=== PATIENT | female | born 1945 | race Caucasian/White ===

== ENCOUNTER 2025-07-04 19:25 | Inpatient (IN) | payer MEDICARE, OTHER, SELFPAY ==
[2025-07-04] VITALS (16 sets, daily range): BP systolic 98–195; BP diastolic 53–96; BMI 19.6
--- NOTE | 2025-07-04 11:40 | ED.GENMED ---
History of Present Illness
General
Chief Complaint: Abdominal Symptoms
Source: patient and family (Daughter)
Exam Limitations: none
Time Seen by Provider: 07/04/25 11:32
History of Present Illness
History of Present Illness:
80-year-old female complaining of left flank pain. Started yesterday. Associate with nausea and vomiting. No fever or chills. No urinary symptoms. No burning with urination. No change in bowels. History of appendiceal CA with metastasis. Has
had previous ureteral stents with surgery. Pain feels similar.
Past History
Past History
ED Past Medical History: Cancer and Other (Renal insufficiency)
ED Past Surgical History: Appendectomy, Cholecystectomy and Gynecological
Phy Exam
Physical Exam
Physical Exam:
GENERAL: Alert and oriented in no apparent distress
EYE: Orbits normal.
NECK: Supple
CARDIAC: Regular rate and rhythm without any obvious murmurs.
LUNGS: Clear breath sounds,normal
ABDOMEN: Soft, without focal tenderness or distention. No rash or flank rash. No vesicles. No CVA tenderness
NEUROLOGICAL: Alert and oriented , grossly non-focal
SKIN: Warm and dry, no rash or lesion, no discoloration, skin intact.
MUSCULOSKELETAL: Mild bilateral pitting edema
PSYCH: Normal and appropriate interaction.
Course
Orders/Labs/Results
Orders:
Orders
07/04/25 11:52
Complete Blood Count/With Diff Urgent
Comprehensive Metabolic Panel Urgent
Lipase Urgent
07/04/25 13:12
CT Abd/pel Without Iv Or Oral Urgent
Comment:
Reason For Exam: left flak pain
IV Insert/Care/Rem.- Treatment PRN
Urinalysis Reflex To Culture Urgent
0.9% Sodium Chloride 500 ml [Nss] 500 ml IV BOLUS
07/04/25 13:53
HYDROmorphone [Dilaudid] 0.25 mg IV NOW STA
07/04/25 14:20
Blood Culture Q30M
ISMAEL Source: Blood/Venous
Specimen Description:
Blood Culture Q30M
ISMAEL Source: Blood/Venous
Specimen Description:
07/04/25 19:02
Urine Creatinine Routine
Urine Sodium Routine
07/04/25 19:05
Admit/Transfer Patient As Directed
Co-Sign Provider:
Level of Care: Inpatient admission
Assign to:: Medical/Surgical
Physician / Group: Olga Mckeon
Diagnosis: bilateral hydroureternephrosis, renal failuren
Reason for Hospitalization: bilateral hydroureternephrosis, renal failuren
Expected length of stay greater than two midnights?: Yes
ELOS- Estimated Length of Stay in days: 3
I certify the patient meets the requirements for IP care: Yes
Code Status As Directed
Resuscitation Status: Do not resuscitate
Reached after discussion with pt or family/Healthcare POA: Yes
PRN Pain Medication Management As Directed
May give lesser potent ordered pain med per pt: Yes
preference::
Protocol:: Medication orders for pain may be administered in a
manner that supports deferring to patient preference
when the pt is:
- Requesting an ordered lesser potent pain medication.
Least to most potent pain medications are defined
as: acetaminophen < NSAID < tramadol < opioids
(morphine, oxycodone, hydromorphone).
- Requesting a lesser dose of the same medication IF
ORDERED.
- Requesting a less intrusive route of administration
if both routes are prescribed by the provider (PO <
IV).
07/04/25 19:07
DNR Bracelet Application ONCE
07/04/25 19:15
0.9% Sodium Chloride 1000 ml [Nss] 1,000 ml IV 60 mls/hr
07/04/25 19:30
Dextrose 5%/Water 1000 ml [D5w] 1,000 ml Sodium Bicarbonate 150 meq IV 60 mls/hr
07/04/25 20:22
HYDROmorphone [Dilaudid] 0.25 mg IV Q3HPRN PRN
07/04/25 20:46
Acetaminophen [Tylenol] 650 mg PO Q6HPRN PRN mild pain
Bisacodyl [Dulcolax] 10 mg RECTAL [id number] PRN
Ondansetron Injectable [Zofran] 4 mg IV Q6HPRN PRN
Polyethylene Glycol Powder [Miralax] 17 grams PO DAILYPRN PRN
07/04/25 20:46
Case Management Consult ONCE
Case Management Consult: Hospice
Hospice: Evaluation and treat
Consult Interventional Radiology [IRAD CONSULT] Routine
Consulting Provider: Ronaldo Mock
Was physician already notified: Yes
Procedure being ordered, including laterality if applicable: b/l nephrostomy tube eval
Acknowledgement that appropriate orders are entered: Yes
UROLOGY CONSULT Routine
Consulting Provider: Morro Mireles
Was physician already notified: Yes
Activity As Directed
Activity Level: As Tolerated
Pneumatic Compression Sleeves As Directed
Type: Knee high
Vital Signs As Directed
Frequency: Per unit guidelines
DX Deep Vein Thrombosis Video Routine
07/05/25 Breakfast
NPO
Allow oral meds: Yes
Allow clear liquids: No
Basic Metabolic Panel IN AM
Complete Blood Count/With Diff IN AM
Magnesium IN AM
07/05/25 08:00
Pantoprazole [Protonix] 40 mg PO DAILY
Abnormal Lab Results
07/04/25
11:52
WBC 15.0 H 10^3/uL
(4.8-10.8)
RBC 3.59 L 10^6/uL
(4.20-5.40)
Hgb 10.4 L g/dL
(12.0-16.0)
Hct 31.2 L %
(37.0-47.0)
RDW 20.6 H %
(11.5-14.5)
Abs Immat Gran (auto) 0.1 H 10^3/uL
(0-0.05)
Absolute Neuts (auto) 13.1 H 10^3/uL
(1.4-6.5)
Absolute Lymphs (auto) 0.6 L 10^3/uL
(1.2-3.4)
Absolute Monos (auto) 1.2 H 10^3/uL
(0.1-0.6)
Immature Gran % 0.7 H %
(0-0.5)
Neutrophils % 87.7 H %
(42.2-75.2)
Lymphocytes % 3.7 L %
(20.5-51.1)
Carbon Dioxide 19 L mmol/L
(22-30)
BUN 59 H mg/dl
(7-17)
Creatinine 4.5 H* mg/dL
(0.6-1.0)
Calcium 8.2 L mg/dl
(8.4-10.2)
AST 211 H U/L
(14-36)
ALT 101 H U/L
(0-35)
Alkaline Phosphatase 1171 H U/L
(38-126)
Total Protein 5.9 L g/dl
(6.3-8.2)
Albumin 2.9 L g/dl
(3.5-5.0)
07/04/25 11:52
07/04/25 11:52
Vital Signs
Initial and Last Documented VS:
Initial Vital Signs
Temp Pulse Resp BP Pulse Ox
97.7 F 93 16 172/96 98
07/04/25 09:26 07/04/25 09:26 07/04/25 09:26 07/04/25 09:26 07/04/25 09:26
Last Documented Vital Signs
Temp Pulse Resp BP Pulse Ox
98.2 F 91 16 138/79 94
07/05/25 01:52 07/05/25 01:52 07/05/25 01:52 07/05/25 01:52 07/05/25 01:52
MDM/Problems Addressed
Differential Diagnosis Includes:
Patient most consistent with some kind of ureteral or kidney issue. Clinically not infectious. Workup in progress. Fluids labs CT scan.
*Radiology
Radiology exam reviewed: radiology read reviewed (Large pelvic mass cystic and solid. Bilateral obstructing ureters with hydronephrosis bilaterally.)
*Pulse Oximetry
SaO2: 98
Oxygen Mode of Delivery: Room air
Patient hypoxic: no
*Critical Care Note
Total Time (30-74mins, 75-104mins- exclusive of procedures): Not Applicable
Update Note
Update Note:
Patient clearly warrants admission for renal failure bilateral obstructing ureter secondary to mass in the pelvis. Will likely need nephrostomies. 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 Patient would prefer to stay at [place].
ED Attending Note
-
Portions of this chart may have been created with voice recognition software.� Occasional wrong word or��sound alike� substitutions may have occurred due to the inherent limitations of voice recognition software.
Discharge Plan
Departure
Patient Disposition: Admit
Date of Disposition: 07/04/25
Time of Disposition: 15:26
Presentation/result/management discussed w/ accepting MD/DO: Hospitalist
Discharge Problem:
Acute renal failure, Bilateral obstructing ureters, Secondary to pelvic mass
Interventions
Interventions:
*Risk Screen - Suicide Last Done: 07/04/25 20:21
*General Assessment Last Done: 07/04/25 20:21
*Neglect/Abuse Screening Last Done: 07/04/25 20:21
*ED COVID-19 Vaccine History Last Done: 07/04/25 20:21
*ED Influenza Vaccine History Last Done: 07/04/25 20:21
[facility] Fall Risk Assessment Tool Last Done: 07/04/25 21:25
YL-Sfipqs-Lvmkvtlnub Assessment Last Done: 07/04/25 11:56
[2025-07-04 12:08] LABS: Hematocrit 31.2 % (37.0-47.0); Hemoglobin 10.4 g/dL (12.0-16.0); Mean Corp Hgb Conc. 33.3 g/dL (33.0-37.0); Mean Corpuscular Volume 86.9 fL (81.0-99.0); Nucleated Red Blood Cells % 0 %; Platelet Count 379 10^3/uL (130-400); Red Cell Dist. Width 20.6 % (11.5-14.5)
[2025-07-04 12:30] LABS: ALT (SGPT) 101 U/L (0-35); AST (SGOT) 211 U/L (14-36); Albumin 2.9 g/dl (3.5-5.0); Blood Urea Nitrogen 59 mg/dl (7-17); Calcium 8.2 mg/dl (8.4-10.2); Carbon Dioxide 19 mmol/L (22-30); Chloride 105 mmol/L (98-107); Estimated Creatinine Clearance 9 ml/min; Glucose 97 mg/dl (70-99); Lipase 294 U/L (23-300); Potassium 4.0 mmol/L (3.5-5.1); Sodium 136 mmol/L (135-145); Total Protein 5.9 g/dl (6.3-8.2); eGFR 9.49
[2025-07-04] MEDS: NSS 500 IV (13:15)
[2025-07-04] MEDS: DILAUDID 0.25 MG IV ×2 (14:33→20:38)
[2025-07-04 14:47] LABS: Alkaline Phosphatase 1171 U/L (38-126)
--- NOTE | 2025-07-04 18:43 | HPS.HSE ---
Addendum entered and electronically signed by Olga Mckeon MD 07/04/25 19:18:
Labs with metabolic acidosis in setting of kidney failure, sodium bicarb ordered.
Original Note:
Family Physician
-
Family Physician: Bob Medrano
Chief Complaint
-
left flank pain
History of Present Illness
Ms. Perla Escudero is a 80 yo woman with hx metastatic appendiceal cancer, CKD who presents to the ER with flank pain.
Pain has been on-going the past several days. No fevers. + nausea/vomiting a couple of times. She received a low dose of Dilaudid in the ER and pain is now resolved.
No chest pain or shortness of breath. She has had very poor appetite over the past several days.
Patient was on recent chemotherapy for appendiceal cancer but this was stopped for low blood counts. She recently met with palliative care and is discussing enrollment in hospice. Her [place] Oncologist updated ER physician that they were discussing
hospice.
Medical History
Past Medical History
Past Medical History: Reports Other (metastatic appendiceal cancer, CKD)
Past Surgical History: Reports Other
Social History
Tobacco: Non-smoker
Alcohol: None
Family History
Family History: Not pertinent
Allergies / Home Medications
Allergies reflects when Allergies were last updated in [facility].
Home Medications with original date entered in [facility]
Allergy/Medication List:
Allergies
Allergy/AdvReac Type Severity Reaction Status Date / Time
No Known Allergies Allergy Unverified 07/04/25 09:29
Home Medications
acetaminophen 325 mg tablet (Tylenol) 650 mg PO Q6HPRN PRN mild pain 07/04/25
omeprazole 40 mg capsule,delayed release 40 mg PO DAILY Gastrointestinal Issue 07/04/25
therapeutic multivitamin 1 tab PO DAILY Supplement 07/04/25
Review of Systems
-
History Source: Patient
A 12 point ROS was completed and negative except as noted: Yes
Physical Exam
Vital Signs
Vital Signs
Temp Pulse Resp BP Pulse Ox
97.7 F 113 13 165/74 93
07/04/25 09:26 07/04/25 18:30 07/04/25 18:30 07/04/25 18:30 07/04/25 18:30
Physical Exam
General: No Apparent Distress
HEENT: PERRLA
Respiratory: Clear; No Wheezes
Cardiac: S1/S2 and Regular Rhythm
GI: Soft and Non Tender
Genito-urinary: Costovertebral angle tend
Musculoskeletal: No Edema
Neuro: AO x 3
Psych: Calm
Laboratory Results
-
07/04/25 11:52
07/04/25 11:52
Laboratory Results
Total Bilirubin 1.0 mg/dl (0.2-1.3) 07/04/25 11:52
AST 211 U/L (14-36) H 07/04/25 11:52
ALT 101 U/L (0-35) H 07/04/25 11:52
Alkaline Phosphatase 1171 U/L (38-126) H 07/04/25 11:52
Lipase 294 U/L (23-300) 07/04/25 11:52
Data Reviewed
-
Diagnostic Radiology: Report Reviewed by me
Lab Data: Labs Reviewed by me
Impression/Plan
-
Ms. Perla Escudero is a 80 yo woman with hx metastatic appendiceal cancer, CKD who presents to the ER with flank pain.
Triage VS: T 97.7, P 93, RR 16, BP 172/96, SpO2 98%
LABS: WBC 15, Hg 10.4, PLT 379, Na 136, K+ 4.0, Cl 105, CO2 19, BUN 59, Cr 4.5, Ca 8.2, T. Bili 1.0, AST 211, ALT 101, Alk PHos 1171
CT A/P
IMPRESSION:
Large heterogeneous mixed cystic and solid pelvic masses are present measuring up to 10.9 cm, likely degenerating uterine fibroids. Possible left adnexal mass. Neoplasm not excluded. These displace/compress the urinary bladder inferiorly and likely
contribute to obstruction at the bilateral uterovesical junctions with associated moderate diffuse bilateral hydroureteronephrosis. Recommend further evaluation with dedicated pelvic ultrasound.
No obstructing urinary calculi.
2.3 cm left lower lobe pulmonary nodule with probable benign type calcifications. Consider outpatient follow-up CT chest in 2-3 months. [facility] Pulmonary Nodule Advisory Board will be notified.
Acute Renal Failure
Large pelvic masses resulting in urinary bladder compression and moderate diffuse bilateral hyudorureteronephrosis
Known metastatic appendiceal cancer
-admit to med/surg
-case discussed with Urology and IR, formal consults tomorrow
-NPO after MN for bilateral nephrostomy tubes
-gentle NS overnight, dehydration may also be contributing to MALVIN
-follow up urine studies
-IV Dilaudid PRN, low dose 0.25mg worked well in the emergency room
-hospice consult - patient is no longer a candidate for chemotherapy. [place] Oncologist spoke to ER team. Patient is accepting of hospice at this time. We discussed that procedure can result in comfort and therefore reasonable to pursue.
CKD
-unknown baseline
GERD- PHONE TECHNICIAN PPI
DVT PPx SCD
DNR
76 minutes spent on patient care
--- NOTE | 2025-07-04 19:58 | W.PN.URO.CBU ---
Today's Communication / Plan
-
npo for adela tomorrow
Assessment / Plan
-
renal insufficiency due to extrinsic compression uretrs and bladder creatinie 4.5 discussed jj stent vs perc tube vs hospice Ddaughter in attendance Willproceed with irad rin [place] for perc tubes no hospice at this time
Diagnosis
-
Date of Service: July 04, 2025
-
Patient Diagnosis:cretainie 4.5 cat wbc 15 k due to bilateral ureteral obstruction from advancing pelvic malinancy
Post Op Day:
Subjective
-
felels poorly
Objective
-
Vital Signs
Temp Pulse Resp BP Pulse Ox
97.7 F 112 21 165/74 94
07/04/25 09:26 07/04/25 19:00 07/04/25 19:00 07/04/25 18:30 07/04/25 19:00
Laboratory Results
07/04/25 11:52
07/04/25 11:52
Review of Systems
-
: Frequency and Difficulty Voiding
Physical Exam
-
General - well developed, well nourished, no acute distresscachectic
Abdomen - soft, non-tender, positive bowel sounds, no CVAT, no incisional pain or distention
Genitalia - normal
Rectal - normal
Skin - warm & dry with no rash
Neuro - AOx3, no motor deficits
Extremities - no clubbing, no cyanosis, no edema
Incision - clean, dry
Dressing - clean, dry, intact
Counseling
-
tubes tomorrow
Care Review
Data Reviewed
Discussed with: Hospitalist, Nursing, IRAD and Family
CT Scan: Image Pers Reviewed
[2025-07-04] MEDS: SODIUM BICARBONATE 1150 MEQ IV (20:32)
[2025-07-05] VITALS (7 sets, daily range): BP systolic 90–153; BP diastolic 61–79
[2025-07-05 06:57] LABS: Hematocrit 30.3 % (37.0-47.0); Hemoglobin 10.2 g/dL (12.0-16.0); Mean Corp Hgb Conc. 33.7 g/dL (33.0-37.0); Mean Corpuscular Volume 86.6 fL (81.0-99.0); Nucleated Red Blood Cells % 0 %; Platelet Count 293 10^3/uL (130-400); Red Cell Dist. Width 20.9 % (11.5-14.5)
[2025-07-05 07:17] LABS: Blood Urea Nitrogen 66 mg/dl (7-17); Calcium 7.7 mg/dl (8.4-10.2); Carbon Dioxide 23 mmol/L (22-30); Chloride 104 mmol/L (98-107); Estimated Creatinine Clearance 8 ml/min; Glucose 116 mg/dl (70-99); Magnesium 1.6 mg/dl (1.6-2.3); Potassium 4.1 mmol/L (3.5-5.1); Sodium 136 mmol/L (135-145); eGFR 7.97
--- NOTE | 2025-07-05 07:31 | EDRN ---
Provider notified of critical value CR via TT
--- NOTE | 2025-07-05 08:10 | EDRN ---
Provider notified of critical value BC via TT
[2025-07-05] MEDS: PROTONIX 40 MG PO (08:48)
[2025-07-05 08:58] LABS: INR 1.25; PT 15.5 Sec (11.4-14.6)
--- NOTE | 2025-07-05 09:27 | CM ---
consult received chart reviewed
SPoke with patient and dtr Estrellita at ED bedside
Lives alone in [address]
Dtr lives 5 min away
Independent with ADLs and ambulation
PCP Bob Medrano
[facility] [place]
hx of [facility]
no hx of SNF
DCP pt and dtr both interested in hospice
[facility]erral [facility] via [facility] and [facility]
CM to follow up for any dcp needs
[2025-07-05] MEDS: ZOSYN 50 IV ×2 (09:49→16:48)
--- NOTE | 2025-07-05 10:09 | HOSPNOTE ---
Spoke with patient and daughter about hospice and the philosophy. The patient was scheduled to have a procedure today in IR but was experiencing pain and n/v and now is receiving IV antibiotics. The patient has my number to call when and if hospice
is wanted/needed. Any further questions please feel free to reach out.
--- NOTE | 2025-07-05 11:04 | W.PN.HOSP.TC ---
Today's Communication/Plan
-
nephrostomy tubes care
pain control
empiric zosyn
bicarb gtt
monitor renal function
Assessment / Plan
Assessment / Plan
Physical Exam
General: No Apparent Distress, appears comfortable
HEENT: PERRLA
Respiratory: Clear; No Wheezes
Cardiac: S1/S2 and Regular Rhythm
GI: Soft and Non Tender
Genito-urinary: no Costovertebral angle tenderness, bilateral nephrostomy tubes present
Musculoskeletal: No Edema
Neuro: AO x 3 conversant coherent
Psych: Calm
Ms. Perla Escudero is a 80 yo woman with hx metastatic appendiceal cancer, CKD who presents to the ER with flank pain.
CT A/P
IMPRESSION:
Large heterogeneous mixed cystic and solid pelvic masses are present measuring up to 10.9 cm, likely degenerating uterine fibroids. Possible left adnexal mass. Neoplasm not excluded. These displace/compress the urinary bladder inferiorly and likely
contribute to obstruction at the bilateral uterovesical junctions with associated moderate diffuse bilateral hydroureteronephrosis. Recommend further evaluation with dedicated pelvic ultrasound.
No obstructing urinary calculi.
2.3 cm left lower lobe pulmonary nodule with probable benign type calcifications. Consider outpatient follow-up CT chest in 2-3 months. [facility] Pulmonary Nodule Advisory Board will be notified.
Acute Renal Failure, CKD unknown baseline
Metabolic Acidosis
Large pelvic masses resulting in urinary bladder compression and moderate diffuse bilateral hyudorureteronephrosis
Known metastatic appendiceal cancer
Pyelonephritis
Bacteremia
Complicated UTI
-med/surg admit
-IR urology evals appreciated
-s/p bilateral nephrostomy tubes 07/05
-Bicarb gtt
-follow up urine studies
-IV Dilaudid PRN, low dose 0.25mg worked well in the emergency room
-hospice appropriate - patient is no longer a candidate for chemotherapy. [place]cologist spoke to ER team.
-blood cx's pos follow
-empiric zosyn
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
DVT PPx SCD
DNR
Discussed with patient, patient's sister Carol, and patient's daughters Estrellita and Alexia
I spent a total of 45 minutes with the patient or on the floor. More than 50% of this time involved counseling and coordination of care.
Anticipated Discharge: 24 - 48 hours
Subjective/Interval History
-
Date of Service: July 05, 2025
No acute distress, sitting up comfortably in bed, reports feeling well since Nephrostomy tubes placement. Pain/discomfort nausea resolved. Familly (daughters and sister present during evaluation).
Objective Data
-
Labs:
Laboratory Results
07/05/25 07/05/25
06:44 08:43
WBC 14.9 H
Hgb 10.2 L
Hct 30.3 L
Plt Count 293 D
PT 15.5 H
INR 1.25
Sodium 136
Potassium 4.1
Chloride 104
Carbon Dioxide 23
BUN 66 H
Creatinine 5.2 H*
Glucose 116 H
Calcium 7.7 L
Vital Signs:
Vital Signs
Temp Pulse Resp BP Pulse Ox
98 F 90 20 131/64 92
07/05/25 10:34 07/05/25 10:34 07/05/25 10:34 07/05/25 10:34 07/05/25 10:34
--- NOTE | 2025-07-05 12:37 | EDRN ---
Returning from IRAD. Pt sanjeev well. Provider TT re- diet order update.
[2025-07-05] MEDS: MAGNESIUM SULFATE 50 IV (12:44)
--- NOTE | 2025-07-05 12:53 | W.PN.URO.CBU ---
Today's Communication / Plan
-
no gu intervention
Assessment / Plan
-
renal insufficiency due to extrinsic compression uretrs and bladder creatinie 4.5 discussed jj stent vs perc tube vs hospice Ddaughter in attendance Willproceed with brunilda hutton for perc tubes no hospice at this times/p bilateral perc tubes
Diagnosis
-
Date of Service: July 05, 2025
-
Patient Diagnosis:
Post Op Day:
Patient Diagnosis:cretainie 4.5 cat wbc 15 k due to bilateral ureteral obstruction from advancing pelvic malinancy
Post Op Day:
Subjective
-
sedated from perc tube
Objective
-
Vital Signs
Temp Pulse Resp BP Pulse Ox
98 F 88 16 132/69 96
07/05/25 10:34 07/05/25 12:51 07/05/25 12:51 07/05/25 12:51 07/05/25 12:51
Laboratory Results
07/05/25 06:44
07/05/25 06:44
Physical Exam
-
General - well developed, well nourished, no acute distress
Chest - clear bilaterally
Abdomen - soft, non-tender, positive bowel sounds, no CVAT, no incisional pain or distention
Genitalia - normal
Rectal - normal
Skin - warm & dry with no rash
Neuro - AOx3, no motor deficits
Extremities - no clubbing, no cyanosis, no edema
Incision - clean, dry
Dressing - clean, dry, intact
Counseling
-
no gu intervention
Care Review
Data Reviewed
CT Scan: Image Pers Reviewed
[2025-07-05 13:10] LABS: Urine Character Clear (Clear)
[2025-07-05 13:18] LABS: Urine Red Blood Cell >100 /HPF (0-2)
--- NOTE | 2025-07-05 14:04 | EDRN ---
rt nephrostomy - 480. Lt nephrostomy 400
[2025-07-05] MEDS: SODIUM BICARBONATE 1150 MEQ IV (16:47)
--- NOTE | 2025-07-05 17:00 | PTCARENOTE ---
Patient admitted from home through emergency with renal insufficiency secondary to B/L blocked ureters from malignancy.She had B/l nephrostomy tubes placed today.Both are draining yellow urine with scant blood tinge.The patient denies any pain.Vital
signs are stable.The patient is in her bed with the call davila in reach.Her family is at the bedside.
[2025-07-06] MEDS: ZOSYN 50 IV ×3 (00:45→17:21)
[2025-07-06 06:26] LABS: Hematocrit 25.4 % (37.0-47.0); Hemoglobin 8.5 g/dL (12.0-16.0); Mean Corp Hgb Conc. 33.5 g/dL (33.0-37.0); Mean Corpuscular Volume 86.7 fL (81.0-99.0); Platelet Count 205 10^3/uL (130-400); Red Cell Dist. Width 20.3 % (11.5-14.5)
[2025-07-06 06:57] LABS: ALT (SGPT) 112 U/L (0-35); AST (SGOT) 199 U/L (14-36); Albumin 2.2 g/dl (3.5-5.0); Alkaline Phosphatase 1146 U/L (38-126); Blood Urea Nitrogen 53 mg/dl (7-17); Calcium 7.5 mg/dl (8.4-10.2); Carbon Dioxide 34 mmol/L (22-30); Chloride 99 mmol/L (98-107); Estimated Creatinine Clearance 12 ml/min; Glucose 109 mg/dl (70-99); Magnesium 1.9 mg/dl (1.6-2.3); Potassium 2.9 mmol/L (3.5-5.1); Sodium 136 mmol/L (135-145); Total Protein 4.9 g/dl (6.3-8.2); eGFR 13.28
--- NOTE | 2025-07-06 07:27 | W.PN.HOSP.TC ---
Today's Communication/Plan
-
cont abx
replete K
bicarb gtt switched to LR
PT/OT
monitor renal function
follow cx results
Assessment / Plan
Assessment / Plan
Physical Exam
General: No Apparent Distress, appears comfortable
HEENT: PERRLA
Respiratory: Clear; No Wheezes
Cardiac: S1/S2 and Regular Rhythm
GI: Soft and Non Tender
Genito-urinary: no Costovertebral angle tenderness, bilateral nephrostomy tubes present
Musculoskeletal: No Edema
Neuro: AO x 3 conversant coherent
Psych: Calm
Ms. Perla Escudero is a 80 yo woman with hx metastatic appendiceal cancer, CKD who presents to the ER with flank pain.
CT A/P
IMPRESSION:
Large heterogeneous mixed cystic and solid pelvic masses are present measuring up to 10.9 cm, likely degenerating uterine fibroids. Possible left adnexal mass. Neoplasm not excluded. These displace/compress the urinary bladder inferiorly and likely
contribute to obstruction at the bilateral uterovesical junctions with associated moderate diffuse bilateral hydroureteronephrosis. Recommend further evaluation with dedicated pelvic ultrasound.
No obstructing urinary calculi.
2.3 cm left lower lobe pulmonary nodule with probable benign type calcifications. Consider outpatient follow-up CT chest in 2-3 months. [facility] Pulmonary Nodule Advisory Board will be notified.
Acute Renal Failure, CKD unknown baseline
Metabolic Acidosis
Large pelvic masses resulting in urinary bladder compression and moderate diffuse bilateral hyudorureteronephrosis
Known metastatic appendiceal cancer
Pyelonephritis
Bacteremia
Complicated UTI
-med/surg admit
-IR urology evals appreciated
-s/p bilateral nephrostomy tubes 07/05
-Bicarb gtt switched to LR (acidosis resolved)
-follow up urine studies
-IV Dilaudid PRN, low dose 0.25mg worked well in the emergency room
-hospice appropriate - patient is no longer a candidate for chemotherapy.
-blood cx's prelim pos gram neg bacilli follow
-empiric zosyn
Hypokalemia
-monitor and replete as necessary
PT/OT home health
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
DVT PPx SCD
DNR
Discussed with patient patient's daughter Jakob
I spent a total of 45 minutes with the patient or on the floor. More than 50% of this time involved counseling and coordination of care.
Anticipated Discharge: 24 - 48 hours
Subjective/Interval History
-
Date of Service: July 06, 2025
No acute distress, appears comfortable at this time. Overall reports feeling well. Denies pain nausea. tolerating diet.
Objective Data
-
Labs:
Laboratory Results
07/06/25
06:05
WBC 7.2
Hgb 8.5 L
Hct 25.4 L
Plt Count 205 D
Sodium 136
Potassium 2.9 L D
Chloride 99
Carbon Dioxide 34 H
BUN 53 H
Creatinine 3.4 H
Glucose 109 H
Calcium 7.5 L
Total Bilirubin 1.3
AST 199 H
ALT 112 H
Alkaline Phosphatase 1146 H
Vital Signs:
Vital Signs
Temp Pulse Resp BP Pulse Ox
98.4 F 85 17 119/61 94
07/05/25 23:07 07/05/25 23:07 07/05/25 23:07 07/05/25 23:07 07/05/25 23:07
I&O
07/05/25 07/06/25 07/07/25
06:59 06:59 06:59
Intake Total 50 / 50
Output Total 3545 / 3545
Balance -3495 / -3495
[2025-07-06 08:11] VITALS: BP 132/73
[2025-07-06] MEDS: KCL 40 MEQ PO (09:00)
[2025-07-06] MEDS: LR 1000 IV (09:00)
[2025-07-06] MEDS: PROTONIX 40 MG PO (09:01)
[2025-07-06] MEDS: THERAGRAN 1 TABLET PO (09:01)
[2025-07-06] MEDS: TYLENOL 650 MG PO ×2 (09:09→18:05)
[2025-07-06] MEDS: KCL 260 MEQ IV (09:15)
--- NOTE | 2025-07-06 10:34 | W.PN.URO.CBU ---
Today's Communication / Plan
-
vconsult vn
Assessment / Plan
-
renal insufficiency due to extrinsic compression uretrs and bladder creatinie 4.5 discussed jj stent vs perc tube vs hospice Ddaughter in attendance now s/p perc tubes creatinine down 3.4 will have family learn care and reach ut to irad and
vn
Diagnosis
-
Date of Service: July 06, 2025
-
Patient Diagnosis:
Post Op Day:
Patient Diagnosis:
Post Op Day:
Patient Diagnosis:cretainie 4.5 cat wbc 15 k due to bilateral ureteral obstruction from advancing pelvic malinancy
Post Op Day:
Subjective
-
feeling better
Objective
-
Vital Signs
Temp Pulse Resp BP Pulse Ox
98.6 F 81 18 132/73 94
07/06/25 08:11 07/06/25 08:11 07/06/25 08:11 07/06/25 08:11 07/06/25 08:11
Intake and Output
07/05/25 07/06/25 07/07/25
06:59 06:59 06:59
Intake Total 50 / 50
Output Total 3545 / 3545 750 / 750
Balance -3495 / -3495 -750 / -750
Intake:
IV piggybacks 50 / 50
Output:
Urinary Drain Output (Total) 2290 / 2290 750 / 750
Left Nephrostomy 1190 / 1190 300 / 300
Right Nephrostomy 1100 / 1100 450 / 450
Urostomy output 1255 / 1255
Laboratory Results
07/06/25 06:05
07/06/25 06:05
Review of Systems
-
: Flank Pain
Physical Exam
-
General - well developed, well nourished, no acute distress
Chest - clear bilaterally
Abdomen - soft, non-tender, positive bowel sounds, no CVAT, no incisional pain or distention
Genitalia - normal
Rectal - normal
Skin - warm & dry with no rash
Neuro - AOx3, no motor deficits
Extremities - no clubbing, no cyanosis, no edema
Incision - clean, dry
Dressing - clean, dry, intact
Counseling
-
teach perc tube care check with irad for instructions ie irrid-gation showers etc
Care Review
Data Reviewed
Discussed with: Nursing and Family
CT Scan: Image Pers Reviewed
[2025-07-06 12:29] VITALS: BP 124/52; PULSE 76; O2SAT 94
--- NOTE | 2025-07-06 12:30 | CM ---
CM Consult completed; Home Health agency options discussed; preference is [facility]; referral sent via [facility]
[2025-07-06 13:41] VITALS: BMI 19.6
--- NOTE | 2025-07-06 14:36 | CM ---
Met with patient and daughter at bedside; DC plan reviewed; both agreeable w/ plan
IMM benefit explained;form signed @[id number]
Plan: Discharge to home when medically stable with [facility] home health services
--- NOTE | 2025-07-06 15:07 | PN.CDI ---
CDI
- -
CDI:
Physician Documentation Request
Admit Date: 07/04/25 19:25
Dear Doctor Maco,
Please review the following and provide your response in the progress notes.
Clinical Indicators:
Height: 5 ft 6 in
Weight:121 lb 4 oz
BMI:19.6
Other Clinical Notes:Nutrition consult 07/06 , ' She states that over the past month she has lost 30 lbs.. This is a 19.9% BW loss over 4 months (significant)....'
If possible, please provide an associated diagnosis related to the abnormal BMI, such as:
Weight Loss
Cachectic
- Other
Use of terms such as suspected, likely, concern for, or probable (associated with a specific diagnosis that is being evaluated, monitored, or treated as if it exists) are acceptable and can be coded in the inpatient setting, when documented at the
time of discharge.
Thank you,
Beth Waters RN
CDI Specialist
[facility]
Please use your independent medical judgment in providing your response.
--- NOTE | 2025-07-06 15:09 | W.PN.GENERIC ---
Assessment / Plan
-
Skin:warm dry, without rash
No flank tenderness upon palpation. B/L nephrostomy tubes appear to be in good position. No leakage present. Both are draining clear, gold urine.
Pt advised to change the external nephrostomy tube dressings every 5 days or sooner if they become soiled or malpositioned. She was advised to empty the bags into a urinal to be aware if the output decreases significantly or stops. If this occurs,
she was advised to call Dr. Mireles to obtain an IR order or go to the ER. Pt was made aware to contact Dr. Mireles for an order to change the catheters every 10-12 weeks. Instruction regarding keeping the bags below the insertion sites, having
them secured to the person to prevent dislodgement was given. Pt was provided with an IR post-discharge Percutaneous Drain care info sheet which also has IR contact information.
Pt demonstrated understanding and is OK for discharge from IR.
Physician Progress Note
Subjective
Patient POD#1 with bilateral percutaneous nephrostomy tubes. 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
Pt awake, alert and oriented, sitting in chair with her daughter bedside. She denies any flank pain currently. She admits to some discomfort earlier which was relieved with Tylenol. She reports eating and drinking without difficulty.
Objective
Vital Signs
Temp Pulse Resp BP Pulse Ox
98.6 F 81 18 132/73 94
07/06/25 08:11 07/06/25 08:11 07/06/25 08:11 07/06/25 08:11 07/06/25 08:11
Lab Results
07/06/25 06:05
07/06/25 06:05
Pt's creatinine trending down; Was 5.2, now 3.4
[2025-07-06 16:08] VITALS: BP 131/65
[2025-07-06 23:05] VITALS: BP 137/77
[2025-07-07] MEDS: ZOSYN 50 IV ×3 (00:43→16:44)
[2025-07-07] MEDS: LR 1000 IV ×2 (02:44→16:46)
[2025-07-07 04:57] LABS: Hematocrit 24.5 % (37.0-47.0); Hemoglobin 8.0 g/dL (12.0-16.0); Mean Corp Hgb Conc. 32.7 g/dL (33.0-37.0); Mean Corpuscular Volume 87.5 fL (81.0-99.0); Platelet Count 172 10^3/uL (130-400); Red Cell Dist. Width 20.3 % (11.5-14.5)
[2025-07-07 05:21] LABS: ALT (SGPT) 95 U/L (0-35); AST (SGOT) 124 U/L (14-36); Albumin 2.2 g/dl (3.5-5.0); Alkaline Phosphatase 1084 U/L (38-126); Blood Urea Nitrogen 42 mg/dl (7-17); Calcium 7.7 mg/dl (8.4-10.2); Carbon Dioxide 34 mmol/L (22-30); Chloride 99 mmol/L (98-107); Estimated Creatinine Clearance 18 ml/min; Glucose 100 mg/dl (70-99); Magnesium 1.7 mg/dl (1.6-2.3); Potassium 3.4 mmol/L (3.5-5.1); Sodium 137 mmol/L (135-145); Total Protein 5.0 g/dl (6.3-8.2); eGFR 22.39
[2025-07-07 07:30] VITALS: BP 138/72
--- NOTE | 2025-07-07 07:46 | W.PN.HOSP.TC ---
Today's Communication/Plan
-
cont abx
Nephrostomy care as per IR urology
follow cultures
PT/OT
discharge planning HH
Assessment / Plan
Assessment / Plan
Physical Exam
General: No Apparent Distress, appears comfortable
HEENT: PERRLA
Respiratory: Clear; No Wheezes
Cardiac: S1/S2 and Regular Rhythm
GI: Soft and Non Tender
Genito-urinary: no Costovertebral angle tenderness, bilateral nephrostomy tubes present
Musculoskeletal: No Edema
Neuro: AO x 3 conversant coherent
Psych: Calm
Ms. Perla Escudero is a 80 yo woman with hx metastatic appendiceal cancer, CKD who presents to the ER with flank pain.
CT A/P
IMPRESSION:
Large heterogeneous mixed cystic and solid pelvic masses are present measuring up to 10.9 cm, likely degenerating uterine fibroids. Possible left adnexal mass. Neoplasm not excluded. These displace/compress the urinary bladder inferiorly and likely
contribute to obstruction at the bilateral uterovesical junctions with associated moderate diffuse bilateral hydroureteronephrosis. Recommend further evaluation with dedicated pelvic ultrasound.
No obstructing urinary calculi.
2.3 cm left lower lobe pulmonary nodule with probable benign type calcifications. Consider outpatient follow-up CT chest in 2-3 months. The [facility] Pulmonary Nodule Advisory Board will be notified.
Acute Renal Failure, CKD unknown baseline
Metabolic Acidosis
Large pelvic masses resulting in urinary bladder compression and moderate diffuse bilateral hyudorureteronephrosis
Known metastatic appendiceal cancer
Pyelonephritis
Bacteremia
Complicated UTI
-med/surg admit
-IR urology evals appreciated
-s/p bilateral nephrostomy tubes 07/05
-Bicarb gtt switched to LR (acidosis resolved)
-follow up urine studies
-IV Dilaudid PRN, low dose 0.25mg worked well in the emergency room
-hospice appropriate - patient is no longer a candidate for chemotherapy.
-blood cx's prelim pos gram neg bacilli follow
-empiric zosyn
Hypokalemia
-monitor and replete as necessary
BMI:19.6 wnl (normal 18.5 to 24.9)
Endorses significant wt loss 30 lbs over past 4 months
PT/OT home health
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
DVT PPx SCD
DNR
I spent a total of 45 minutes with the patient or on the floor. More than 50% of this time involved counseling and coordination of care.
Anticipated Discharge: 24 - 48 hours
Subjective/Interval History
-
Date of Service: July 07, 2025
No acute distress, resting comfortably in bed. overall reports feeling well. denies new acute issues. Appetite improved, tolerating diet.
Objective Data
-
Labs:
Laboratory Results
07/07/25
04:40
WBC 5.8
Hgb 8.0 L
Hct 24.5 L
Plt Count 172
Sodium 137
Potassium 3.4 L
Chloride 99
Carbon Dioxide 34 H
BUN 42 H
Creatinine 2.2 H
Glucose 100 H
Calcium 7.7 L
Total Bilirubin 0.8
AST 124 H
ALT 95 H
Alkaline Phosphatase 1084 H
Vital Signs:
Vital Signs
Temp Pulse Resp BP Pulse Ox
97.8 F 79 17 137/77 93
07/06/25 23:05 07/06/25 23:05 07/06/25 23:05 07/06/25 23:05 07/06/25 23:05
I&O
07/06/25 07/07/25 07/08/25
06:59 06:59 06:59
Intake Total 50 / 50 250 / 250
Output Total 3545 / 3545 2325 / 2325
Balance -3495 / -3495 -2075 / -2075
[2025-07-07] MEDS: THERAGRAN 1 TABLET PO (09:18)
[2025-07-07] MEDS: KCL 20 MEQ PO (09:18)
[2025-07-07] MEDS: PROTONIX 40 MG PO (09:18)
[2025-07-07 14:19] VITALS: BP 155/78; PULSE 79
[2025-07-07 15:50] VITALS: BP 148/76
[2025-07-07 23:14] VITALS: BP 145/78
[2025-07-08] MEDS: ZOSYN 50 IV ×3 (00:53→17:10)
[2025-07-08 06:17] LABS: Hematocrit 25.6 % (37.0-47.0); Hemoglobin 8.5 g/dL (12.0-16.0); Mean Corp Hgb Conc. 33.2 g/dL (33.0-37.0); Mean Corpuscular Volume 88.9 fL (81.0-99.0); Platelet Count 173 10^3/uL (130-400); Red Cell Dist. Width 20.1 % (11.5-14.5)
[2025-07-08 06:37] LABS: ALT (SGPT) 85 U/L (0-35); AST (SGOT) 102 U/L (14-36); Albumin 2.5 g/dl (3.5-5.0); Alkaline Phosphatase 1179 U/L (38-126); Blood Urea Nitrogen 30 mg/dl (7-17); Calcium 7.8 mg/dl (8.4-10.2); Carbon Dioxide 31 mmol/L (22-30); Chloride 101 mmol/L (98-107); Estimated Creatinine Clearance 27 ml/min; Glucose 93 mg/dl (70-99); Magnesium 1.4 mg/dl (1.6-2.3); Potassium 3.3 mmol/L (3.5-5.1); Sodium 136 mmol/L (135-145); Total Protein 5.2 g/dl (6.3-8.2); eGFR 35.45
--- NOTE | 2025-07-08 07:18 | W.PN.HOSP.TC ---
Today's Communication/Plan
-
empiric zosyn switched to cefdinir
replete electrolytes
cont IVF
monitor renal function
Assessment / Plan
Assessment / Plan
Physical Exam
General: No Apparent Distress, appears comfortable
HEENT: PERRLA
Respiratory: Clear; No Wheezes
Cardiac: S1/S2 and Regular Rhythm
GI: Soft and Non Tender
Genito-urinary: no Costovertebral angle tenderness, bilateral nephrostomy tubes present
Musculoskeletal: No Edema
Neuro: AO x 3 conversant coherent
Psych: Calm
Ms. Perla Escudero is a 80 yo woman with hx metastatic appendiceal cancer, reported CKD (patient denies) who presents to the ER with flank pain.
CT A/P
IMPRESSION:
Large heterogeneous mixed cystic and solid pelvic masses are present measuring up to 10.9 cm, likely degenerating uterine fibroids. Possible left adnexal mass. Neoplasm not excluded. These displace/compress the urinary bladder inferiorly and likely
contribute to obstruction at the bilateral uterovesical junctions with associated moderate diffuse bilateral hydroureteronephrosis. Recommend further evaluation with dedicated pelvic ultrasound.
No obstructing urinary calculi.
2.3 cm left lower lobe pulmonary nodule with probable benign type calcifications. Consider outpatient follow-up CT chest in 2-3 months. The [facility] Pulmonary Nodule Advisory Board will be notified.
Acute Renal Failure, possible CKD unknown baseline
Metabolic Acidosis
Large pelvic masses resulting in urinary bladder compression and moderate diffuse bilateral hyudorureteronephrosis
Known metastatic appendiceal cancer
Pyelonephritis
Bacteremia
Complicated UTI
-med/surg admit
-IR urology evals appreciated
-s/p bilateral nephrostomy tubes 07/05
-Bicarb gtt switched to LR (acidosis resolved)
-monitor renal function
-IV Dilaudid PRN, low dose 0.25mg worked well in the emergency room
-hospice appropriate - patient is no longer a candidate for chemotherapy. At this time patient wants home with home services and potential transition to palliative/hospice care from there.
-blood cx's pos citrobacter sensitivities appreciated
-following discussion with ID, empiric zosyn transitioned to Cefdinir 300 mg BID, total abx therapy 10 days planned 07/05-07/14
Hypokalemia
Hypophosphatemia
Hypomagnesemia
-monitor and replete as necessary
BMI:19.6 wnl (normal 18.5 to 24.9)
Endorses significant wt loss 30 lbs over past 4 months
PT/OT home health
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
DVT PPx SCD
DNR
Discussed with patient and patient's daughter Estrellita
I spent a total of 45 minutes with the patient or on the floor. More than 50% of this time involved counseling and coordination of care.
Anticipated Discharge: 24 - 48 hours
Subjective/Interval History
-
Date of Service: July 08, 2025
Objective Data
-
Labs:
Laboratory Results
07/08/25
06:05
WBC 7.6
Hgb 8.5 L
Hct 25.6 L
Plt Count 173
Sodium 136
Potassium 3.3 L
Chloride 101
Carbon Dioxide 31 H
BUN 30 H
Creatinine 1.5 H
Glucose 93
Calcium 7.8 L
Total Bilirubin 1.0
AST 102 H
ALT 85 H
Alkaline Phosphatase 1179 H
Vital Signs:
Vital Signs
Temp Pulse Resp BP Pulse Ox
98.5 F 77 19 145/78 95
07/07/25 23:14 07/07/25 23:14 07/07/25 23:14 07/07/25 23:14 07/07/25 23:14
I&O
07/07/25 07/08/25 07/09/25
06:59 06:59 06:59
Intake Total 250 / 250 2560 / 2560
Output Total 2325 / 2325 2525 / 2525
Balance -2074 / -2074
[2025-07-08 07:35] VITALS: BP 142/82
[2025-07-08] MEDS: KCL 20 MEQ PO (08:21)
[2025-07-08] MEDS: PROTONIX 40 MG PO (08:21)
[2025-07-08] MEDS: THERAGRAN 1 TABLET PO (08:22)
[2025-07-08] MEDS: TYLENOL 650 MG PO ×2 (08:26→19:48)
[2025-07-08] MEDS: LR 1000 IV (11:59)
[2025-07-08] MEDS: MAGNESIUM SULFATE 100 IV (12:00)
[2025-07-08] MEDS: POTASSIUM PHOSPHATE 259.0909 MEQ IV (12:05)
[2025-07-08 12:59] LABS: Iron 48 ug/dl (37-170)
[2025-07-08 13:08] LABS: Total Iron Binding Capacity 120 ug/dl (265-497)
[2025-07-08 13:37] LABS: Ferritin 948.0 ng/ml (11.1-264.0)
[2025-07-08 14:08] LABS: Folate 3.9 ng/ml (2.76-20); Vitamin B12 551 pg/ml (239-931)
[2025-07-08 15:25] VITALS: BP 159/84
[2025-07-08] MEDS: OMNICEF 300 MG PO (19:48)
[2025-07-08 23:00] VITALS: BP 155/85
[2025-07-09] MEDS: LR 1000 IV (04:47)
[2025-07-09 07:15] VITALS: BP 155/82
[2025-07-09 07:36] LABS: Hematocrit 25.6 % (37.0-47.0); Hemoglobin 8.6 g/dL (12.0-16.0); Mean Corp Hgb Conc. 33.6 g/dL (33.0-37.0); Mean Corpuscular Volume 88.6 fL (81.0-99.0); Platelet Count 184 10^3/uL (130-400); Red Cell Dist. Width 20.6 % (11.5-14.5)
[2025-07-09 08:15] LABS: ALT (SGPT) 87 U/L (0-35); AST (SGOT) 124 U/L (14-36); Albumin 2.5 g/dl (3.5-5.0); Blood Urea Nitrogen 23 mg/dl (7-17); Calcium 7.9 mg/dl (8.4-10.2); Carbon Dioxide 29 mmol/L (22-30); Chloride 102 mmol/L (98-107); Estimated Creatinine Clearance 31 ml/min; Glucose 79 mg/dl (70-99); Magnesium 2.2 mg/dl (1.6-2.3); Potassium 3.8 mmol/L (3.5-5.1); Sodium 136 mmol/L (135-145); Total Protein 5.5 g/dl (6.3-8.2); eGFR 42.09
[2025-07-09 08:27] LABS: Alkaline Phosphatase 1253 U/L (38-126)
[2025-07-09] MEDS: OMNICEF 300 MG PO (09:47)
[2025-07-09] MEDS: THERAGRAN 1 TABLET PO (09:48)
[2025-07-09] MEDS: PROTONIX 40 MG PO (09:48)
[2025-07-09] MEDS: KCL 20 MEQ PO (09:48)
[2025-07-09] MEDS: LR IV (11:55)
--- NOTE | 2025-07-09 12:32 | W.PN.HOSP.TC ---
Addendum entered and electronically signed by Ishaan Polo MD 07/09/25 16:10:
Antibiotics was changed to ciprofloxacin after review of cultures. Patient was called back she has not picked up cefdinir yet. Informed about antibiotic change. New prescription sent to the pharmacy.
Original Note:
Today's Communication/Plan
-
Discharge home
Daughter is going to stay with her for few days another daughter lives locally
Palliative care referral
Assessment / Plan
Assessment / Plan
80-year-old pleasant female with metastatic appendiceal cancer presented to the ER with flank pain
CT A/P
Large heterogeneous mixed cystic and solid pelvic masses are present measuring up to 10.9 cm, likely degenerating uterine fibroids. Possible left adnexal mass. Neoplasm not excluded. These displace/compress the urinary bladder inferiorly and likely
contribute to obstruction at the bilateral uterovesical junctions with associated moderate diffuse bilateral hydroureteronephrosis. Recommend further evaluation with dedicated pelvic ultrasound.
No obstructing urinary calculi.
Pleasant awake alert, able to communicate and converse.
Cardiovascular system S1-S2 appreciated
Chest clear to auscultation
Bilateral nephrostomy tubes with clear urine
No right upper quadrant tenderness
No pedal edema
# Acute renal failure possible CKD unknown baseline
Metabolic acidosis
Large pelvic mass resulting in urinary bladder compression and moderate diffuse bilateral hydroureteronephrosis
Known metastatic appendiceal cancer
Pyelonephritis with bacteremia and complicated UTI-Citrobacter
Status post bilateral nephrostomy tubes placement 07/05/2025
Metabolic acidosis resolved and bicarb drip discontinued
Patient is hospice appropriate-no longer a candidate for chemotherapy she wants to go home with home services and potentially transition to palliative care/hospice from there
Per discussion with infectious disease antibiotics switched to cefdinir till 07/14/2025
# Nonmucinous appendiceal tbgmmhsjjpidre-bvxm-[id number] diagnosed after an appendectomy on 10/14/2022 at [facility]. At that time she did not have any metastatic disease in the chest, mild irregular wall thickening of the terminal
ileum, cecum, proximal ascending colon with pericolic fat stranding. She underwent a right hemicolectomy with peritoneal debulking and HIPEC on 11/25/2022. CAT scan of the chest abdomen pelvis February showed soft tissues in the area of the
pancreatic head/uncinate process and duodenum and nonobstructive thrombus in the left common femoral vein there was also interval increase in the size of the soft tissue densities adjacent to the duodenum April 2023. May 2023 she was
initiated on FOLFOX and later on bevacizumab was added. August 2023 she was found to have a left lower lobe nodule on the CT of the chest. November 2023 oxaliplatin was discontinued and she was continued on 5-FU/bevacizumab. Further CTs showed slow
progression of the disease. Irinotecan was added to bevacizumab August 2024. October 2024 bevacizumab was held for potential removal of ovarian mass. November 2024 irinotecan cycle 6 dose was reduced. January 2025 she underwent resection of abdominal
wall tumor, left salpingo-oophorectomy with removal of large pelvic mass. Pathology showed moderately differentiated adenocarcinoma with appendiceal primary. ( [facility]) Was then switched to Lonsurf . Now planned for No further treatment .
# Hypokalemia/hypophosphatemia/hypomagnesemia-monitor and replace as necessary
# Elevated LFTs-liver is unremarkable on the CT without contrast. Diffuse prominence of intra and extrahepatic biliary ducts likely within normal limits given postcholecystectomy state. Patient has no right upper quadrant tenderness. Labs from
June 26 outpatient reviewed alkaline phosphatase was 257 AST was 34 ALT was 20 bilirubin was 0.2.
Discussed with the patient about further pursuing workup including MRI/MRCP. Discussed that alkaline phosphatase can be elevated secondary to bone conditions or cholestasis/obstruction. Discussed about options for stenting if there was any
obstruction however she does not want to pursue any further. Patient feels that every time you find something and fix some ultimately malignancy is not able to be treated or cured. She does not want to further work this up. Discussed about
possibilities of developing a fever, pain, jaundice.
# Anemia likely secondary to ihmafeiypv-cak-pmd-on black stools. Patient does not want to pursue endoscopy. Aware that this could be bleeding. Advised to increase Protonix to twice daily.
# 2.3 cm left lower lobe pulmonary nodule-patient does not want to pursue further
# BMI of 19.6-significant weight loss of 30 pounds over the past 4 years
# Mixed cystic and solid pelvic masses-likely degenerating uterine fibroids possible left adnexal mass-patient does not want to pursue any further
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
# History of nonocclusive DVT left common femoral vein. Likely on no anticoagulation because of intermittent GI bleed
# GERD-continue PPI
# Hypoalbuminemia
# DVT prophylaxis-Lovenox
# DNR
Detailed discussion with the patient as well as daughter at bedside. Patient does not want to undergo any further testing or procedures. She stated that it is slowly spreading to different parts of the body and she did not want to address each of
them and go fix it. She is pursuing palliative care and possibly hospice soon as outpatient. She does not desire any further treatment. She asked how much longer she has and we discussed it cannot be precisely predicted. She is interested in
going home and spending the holidays at home on palliative care and possibly transitioning to hospice soon after that.
Discussed with nursing
Total time spent more than 30 minutes reviewing outpatient records, discussing labs as well as plan of care. Taking care of discharge.
Part of this note was created using voice recognition system. Occasional wrong word or��sound alike� substitutions may have inadvertently occurred due to the inherent limitations of voice recognition software. If noted kindly bring it to my
attention for correction.
Anticipated Discharge: Today
Subjective/Interval History
-
Date of Service: July 09, 2025
Objective Data
-
Labs:
Laboratory Results
07/09/25
06:23
WBC 8.4
Hgb 8.6 L
Hct 25.6 L
Plt Count 184
Sodium 136
Potassium 3.8
Chloride 102
Carbon Dioxide 29
BUN 23 H
Creatinine 1.3 H
Glucose 79
Calcium 7.9 L
Total Bilirubin 1.0
AST 124 H
ALT 87 H
Alkaline Phosphatase 1253 H
Vital Signs:
Vital Signs
Temp Pulse Resp BP Pulse Ox
98.2 F 75 16 155/82 98
07/09/25 07:15 07/09/25 07:15 07/09/25 07:15 07/09/25 07:15 07/09/25 07:15
I&O
07/08/25 07/09/25 07/10/25
06:59 06:59 06:59
Intake Total 2560 / 2560 1540 / 1540 840 / 840
Output Total 2525 / 2525 2049 / 2049
Balance 35 / 35 -510 / -510 840 / 840
--- NOTE | 2025-07-09 12:36 | W.DS.TRANS ---
Addendum entered and electronically signed by Ishaan Polo MD 07/09/25 15:53:
Dictation- [id number]
Original Note:
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
-
Discharge Instructions:
Discharge Diagnosis/Procedures Appendiceal carcinoma
Acute renal failure status post bilateral
nephrostomy tubes
Complicated UTI
Electrolyte abnormality
Elevated liver tests
Anemia
Diet As tolerated
Activity As tolerated
Driving Restrictions No driving
Instructions:
Stand-Alone Forms:
Changes to Home Medications: Yes
Discharge Medications:
DC Medications w/original date entered in [employer]
therapeutic multivitamin 1 tab PO DAILY Supplement 07/04/25
cefdinir 300 mg capsule 300 mg PO Q12 Infection #11 caps 07/09/25
omeprazole 40 mg capsule,delayed release 40 mg PO BID Gastrointestinal Issue #60 caps 07/09/25
polyethylene glycol 3350 17 gram oral powder packet 17 g PO DAILYPRN PRN constipation #0 ea 07/09/25
potassium chloride 20 mEq tablet,extended release(part/cryst) (Klor-Con M) 20 meq PO DAILY Electrolyte Repletion #3 tabs 07/09/25
Home Medication Changes
Cefdinir, MiraLAX and potassium are new
Omeprazole increased to twice a day
Pending Results: No
[2025-07-09 12:54] LABS: GGTP 864 U/L (12-43)
--- NOTE | 2025-07-09 12:57 | CM ---
Spoke w/ daughter, Estrellita, via phone; patient/family agreeable to home health/VN and Palliative Care services;
referrals sent to [facility] via [employer]
IMM benefit explained; form dated/timed @ 1255
Plan: Discharge to home w/ [facility] VN and Palliative Care
[2025-07-09 13:38] VITALS: BP 156/79
--- NOTE | 2025-07-09 13:46 | PTCARENOTE ---
Patient ambulating in room with supervision. Patient has no c/o pain at present. Nephrostomy sites cleaned with sterile saline, 2x2, covered tegaderm placed. Supplies given to patient for dressing change and graduate container for emptying.
--- NOTE | 2025-07-09 16:10 | W.DS.TRANS ---
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
-
Discharge Instructions:
Discharge Diagnosis/Procedures Appendiceal carcinoma
Acute renal failure status post bilateral
nephrostomy tubes
Complicated UTI
Electrolyte abnormality
Elevated liver tests
Anemia
Diet As tolerated
Activity As tolerated
Driving Restrictions No driving
Instructions:
Stand-Alone Forms:
Changes to Home Medications: Yes
Discharge Medications:
DC Medications w/original date entered in [employer]
therapeutic multivitamin 1 tab PO DAILY Supplement 07/04/25
ciprofloxacin HCl 250 mg tablet (Cipro) 250 mg PO BID Infection #14 tabs 07/09/25
omeprazole 40 mg capsule,delayed release 40 mg PO BID Gastrointestinal Issue #60 caps 07/09/25
polyethylene glycol 3350 17 gram oral powder packet 17 g PO DAILYPRN PRN constipation #0 ea 07/09/25
potassium chloride 20 mEq tablet,extended release(part/cryst) (Klor-Con M) 20 meq PO DAILY Electrolyte Repletion #3 tabs 07/09/25
Home Medication Changes
Pending Results: No
== END 2025-07-09 14:43 | disposition home health service (06) | DRG 687 ==
LOC: 2 SOUTH 19:25
PROVIDERS: Emergency Medicine; Internal Medicine; Radiology Vascular & Interventional Radiology; ADMITTING PHYSICIAN Student in an Organized Health Care Education/Training Program; ATTENDING PHYSICIAN Hospitalist; CONSULT PHYSICIAN Specialist; EMERGENCY PHYSICIAN Emergency Medicine; FAMILY PHYSICIAN Internal Medicine
PROC: 0T9030Z Drainage of Right Kidney with Drainage Device, Percutaneous Approach (ICD-10-PCS; 2025-07-04)
PROC: 0T9130Z Drainage of Left Kidney with Drainage Device, Percutaneous Approach (ICD-10-PCS; 2025-07-04)
PROC: BT131ZZ Fluoroscopy of Bilateral Kidneys using Low Osmolar Contrast (ICD-10-PCS; 2025-07-04)
DX: C79.00 Secondary malignant neoplasm of unspecified kidney and renal pelvis (principal); C18.1 Malignant neoplasm of appendix; E87.20 Acidosis, unspecified; N17.9 Acute kidney failure, unspecified; N39.0 Urinary tract infection, site not specified; N13.1 Hydronephrosis with ureteral stricture, not elsewhere classified; N13.30 Unspecified hydronephrosis; R19.00 Intra-abdominal and pelvic swelling, mass and lump, unspecified site; D25.9 Leiomyoma of uterus, unspecified; E86.0 Dehydration; K21.9 Gastro-esophageal reflux disease without esophagitis; N18.9 Chronic kidney disease, unspecified; Z66 Do not resuscitate; Z79.899 Other long term (current) drug therapy; E87.6 Hypokalemia; E83.39 Other disorders of phosphorus metabolism; E83.42 Hypomagnesemia
CPT/HCPCS: 50432; 74176; 80048; 80053; 81003; 81015; 82570; 82607; 82728; 82746; 82977; 83540; 83550; 83690; 83735; 84100; 84300; 85025; 85027; 85610; 87040; 87077; 87086; 87154; 87186; 87205; 97163; 97166; 99152; 99153; C1729; C1769